=== PATIENT | male | born 1960 | race American Indian/Alaskan Native ===

== ENCOUNTER 2020-07-31 12:01 | Emergency (ER) | payer MEDICARE ==
--- NOTE | 2020-07-31 12:52 | Event Note ---
ED Screening Note Date of service: 07/31/20 Time: 12:51 ED Screening Note: Patient with a past medical history of liver transplant in 2012. Comes in with complaints of right-sided abdominal pain for the past 3 days. Associated abdominal distention and increased gas production. He denies any nausea, vomiting, bowel changes, UTI symptoms, chest pain or shortness of breath. He denies any fever or chills. He takes his transplant medication but takes no other medications This initial assessment/diagnostic orders/clinical plan/treatment(s) is/are subject to change based on patients health status, clinical progression and re- assessment by fellow clinical providers in the ED. Further treatment and workup at subsequent clinical providers discretion. Patient/guardian urged not to elope from the ED as their condition may be serious if not clinically assessed and managed. Initial orders include: Abdominal pain order set.
[2020-07-31 14:02] LABS: Alanine Aminotransferase 20 units/L (7-56); Albumin 3.8 g/dL (3.9-5); BUN/Creatinine Ratio 15; Blood Urea Nitrogen 28 mg/dL (9-20); Hemolysis Index 32
[2020-07-31 14:08] LABS: Basophils # (Auto) 0.1 K/mm3 (0.0-0.1); Eosinophils # (Auto) 0.6 K/mm3 (0.0-0.4); Eosinophils % (Auto) 5.1 % (0.0-4.3); Hematocrit 40.7 % (35.5-45.6); Hemoglobin 13.4 gm/dl (11.8-15.2); Lymphocytes % (Auto) 35.7 % (13.4-35.0); Mean Corpuscular HGB Conc 33 % (32-34); Mean Corpuscular Volume 94 fl (84-94); Monocytes # (Auto) 1.3 K/mm3 (0.0-0.8); Platelet Count 332 K/mm3 (140-440); Red Blood Count 4.33 M/mm3 (3.65-5.03); Red Cell Distribution Width 15.3 % (13.2-15.2)
[2020-07-31 14:10] LABS: Bilirubin,Direct < 0.2 mg/dL (0-0.2)
--- NOTE | 2020-07-31 17:04 | Emergency Department Report ---
HPI - General Chief Complaint: Abdominal Pain Time Seen by Provider: 07/31/20 16:43 - HPI HPI: Room 3 The patient is a 60-year-old male present with a chief complaint of right flank pain. The patient states for the past 3 days he has had pain in the right flank. Patient states it was initially intermittent but since yesterday the pain is been constant and sharp in nature. Patient denies nausea/vomiting, dysuria or hematuria. Patient denies history of fever. Patient gives his pain a score of 8/10. Of note the patient is status post a liver transplant in 2013 at [facility] transplant physician is Dr. Iniguez ([phone]) ED Past Medical Hx - Surgical History Past Surgical History?: Yes Additional Surgical History: liver transplant (2013 [facility] transplant physician Dr. Iniguez [phone]) - Family History Family history: no significant - Social History Smoking Status: Never Smoker Substance Use Type: None (Denies illicit drug use) - Medications Home Medications: Home Medications Medication Instructions Recorded Confirmed Last Taken Type HYDROcodone/APAP 5-325 [[place] 1 - 2 each PO Q6HR PRN #10 tablet 07/31/20 Unknown Rx 5/325] ED Review of Systems ROS: Stated complaint: PAIN RT LOWER SIDE/STOMACH Other details as noted in HPI Constitutional: denies: fever Eyes: denies: eye pain ENT: denies: throat pain Respiratory: no symptoms reported Cardiovascular: denies: chest pain Endocrine: no symptoms reported Gastrointestinal: abdominal pain. denies: nausea, vomiting Genitourinary: denies: dysuria, hematuria Musculoskeletal: denies: back pain Neurological: denies: headache Physical Exam - Physical Exam Vital Signs: Vital Signs 07/31/20 12:06 Temperature 98.6 F Pulse Rate 82 Respiratory 20 Rate Blood Pressure 149/83 O2 Sat by Pulse 95 Oximetry Physical Exam: GENERAL: The patient is well-developed well-nourished male standing in room appearing to be in mild discomfort. [] HEENT: Normocephalic. Atraumatic. Extraocular motions are intact. Patient has moist mucous membranes. NECK: Supple. Trachea midline CHEST/LUNGS: Clear to auscultation. There is no respiratory distress noted. HEART/CARDIOVASCULAR: Regular. There is no tachycardia. There is no gallop rub or murmur. ABDOMEN: Abdomen is soft, nontender in all 4 quadrants. Patient exhibits tenderness to palpation along the mid axillary line between the right upper and right lower quadrant. Patient has normal bowel sounds. There is no abdominal distention. SKIN: There is no rash. There is no edema. There is no diaphoresis. NEURO: The patient is awake, alert, and oriented. The patient is cooperative. The patient has no focal neurologic deficits. The patient has normal speech and gait. MUSCULOSKELETAL: There is right CVA tenderness. There is no evidence of acute injury. ED Course Vital Signs 07/31/20 12:06 Temperature 98.6 F Pulse Rate 82 Respiratory 20 Rate Blood Pressure 149/83 O2 Sat by Pulse 95 Oximetry - Consultations Consultation #1: 07/31/20 18:57 Dr. Hira corey 07/31/20 19:23 Case discussed with [facility] transplant physician Dr. Lopez-May have p atient follow-up as an outpatient. Okay with patient being prescribed narcotic pain medication. ED Medical Decision Making - Lab Data Result diagrams: 07/31/20 13:15 07/31/20 13:15 Laboratory Tests 07/31/20 07/31/20 07/31/20 13:15 13:15 18:13 WBC 11.1 H RBC 4.33 Hgb 13.4 Hct 40.7 MCV 94 MCH 31 MCHC 33 RDW 15.3 H Plt Count 332 Lymph % (Auto) 35.7 H Norman % (Auto) 12.0 H Eos % (Auto) 5.1 H Baso % (Auto) 1.0 Lymph # (Auto) 4.0 Norman # (Auto) 1.3 H Eos # (Auto) 0.6 H Baso # (Auto) 0.1 Seg Neutrophils % 46.2 Seg Neutrophils # 5.1 Sodium 135 L Potassium 4.4 Chloride 104.3 Carbon Dioxide 23 Anion Gap 12 BUN 28 H Creatinine 1.9 H Estimated GFR 44 BUN/Creatinine Ratio 15 Glucose 95 Calcium 9.0 Total Bilirubin 0.40 Direct Bilirubin < 0.2 Indirect Bilirubin 0.2 AST 24 ALT 20 Alkaline Phosphatase 147 H Total Protein 8.9 H Albumin 3.8 L Albumin/Globulin Ratio 0.7 Lipase 13 Urine Color Yellow Urine Turbidity Clear Urine pH 5.0 Ur Specific [place] 1.014 Urine Protein 30 mg/dl Urine Glucose (UA) Neg Urine Ketones Neg Urine Blood Neg Urine Nitrite Neg Urine Bilirubin Neg Urine Urobilinogen < 2.0 Ur Leukocyte Esterase Neg Urine WBC (Auto) < 1.0 Urine RBC (Auto) 1.0 U Epithel Cells (Auto) < 1.0 Urine Mucus Few - Radiology Data Radiology results: report reviewed (CT abdomen pelvis), image reviewed (CT abdomen pelvis) [facility] [address] [place] [address] Cat Scan Report Signed Patient: ABHIJIT CRAIG MR#: [id number] : 1960 Acct:[id number] Age/Sex: 60 / M ADM Date: 07/31/20 Loc: ED Attending Dr: Ordering Physician: MACO MACIAS MD Date of Service: 07/31/20 Procedure(s): CT abdomen pelvis wo con Accession Number(s): [id number] cc: MACO MACIAS MD CT ABDOMEN AND PELVIS WITHOUT CONTRAST HISTORY: Right flank pain. h/o liver xplant 2012. COMPARISON: None. TECHNIQUE: CT images of the abdomen and pelvis were obtained without administration of intravenous contrast. All CT scans at this location are performed using CT dose reduction for ALARA by means of automated exposure control. FINDINGS: Lungs/bones: There is increased interstitial prominence with bronchiectasis in the lower lungs. Abdomen/pelvis: Patient with history of liver transplant. No free fluid is seen in the upper abdomen. There is postsurgical change in the bowel loops. The small bowel loops small in caliber. There is a dilated small bowel loop distally the level of the anastomosis with dilatation to 4.3 cm. The stomach is slightly dilated and fluid and gas-filled. No dominant adenopathy is seen in the abdomen. No renal or ureteral stones are seen. No hydronephrosis. There is fecal material throughout the colon. Degenerative changes seen throughout spine with postoperative change. IVC filter is noted. IMPRESSION: 1. Abnormal appearance with dilated short segment of small bowel loop within the right mid abdomen. This loop of bowel measures up to 4.3 cm and is in the region of prior anastomosis small bowel. The proximal and distal portion of the small bowel extending from this dilated loop of bowel do not appear to be significantly dilated. This area of dilatation measures 12.5 cm in length. There is fecal material throughout the colon which is distended. The stomach is also distended with gas and fluid. Findings are n onspecific. Early obstruction cannot be completely excluded. A small bowel follow-through series and follow-up recommended. Correlation with clinical history. No free fluid is seen in the abdomen or pelvis. 2. No renal or ureteral stones are seen. No hydronephrosis. 3. Chronic interstitial change in the lung bases. Signer Name: Cain Vallejo MD Signed: 07/31/2020 5:50 PM Workstation Name: [id number] Transcribed By: CW Dictated By: GIANNI VALLEJO MD Electronically Authenticated By: GIANNI VALLEJO MD Signed Date/Time: 07/31/201749 DD/ 43 TD/TT: Print Cancel - Differential Diagnosis Renal colic, pyelonephritis, muscle strain, transplant rejection Critical care attestation.: If time is entered above; I have spent that time in minutes in the direct care of this critically ill patient, excluding procedure time. ED Disposition Clinical Impression: Acute right flank pain Disposition: TO HOME OR SELFCARE Is pt being admited?: No Does the pt Need Aspirin: No Condition: Stable Instructions: Flank Pain, Adult, [id number] Additional Instructions: Return to the emergency department should you develop worsening symptoms, inability to tolerate food or liquids, high fever or any other concerns Prescriptions: HYDROcodone/APAP 5-325 [[place] 5/325] 1 - 2 each PO Q6HR PRN #10 tablet PRN Reason: Pain Referrals: DIAN VAZQUEZ MD [Primary Care Provider] - 3-5 Days [facility] transplant [Other] - 2-3 Days Time of Disposition: 19:25
--- NOTE | 2020-07-31 17:54 | Cat Scan Report ---
CT ABDOMEN AND PELVIS WITHOUT CONTRAST HISTORY: Right flank pain. h/o liver xplant 2013. COMPARISON: None. TECHNIQUE: CT images of the abdomen and pelvis were obtained without administration of intravenous co ntrast. All CT scans at this location are performed using CT dose reduction for ALARA by means of au tomated exposure control. FINDINGS: Lungs/bones: There is increased interstitial prominence with bronchiectasis in the lower lungs. Abdomen/pelvis: Patient with history of liver transplant. No free fluid is seen in the upper abdomen . There is postsurgical change in the bowel loops. The small bowel loops small in caliber. There is a dilated small bowel loop distally the level of the anastomosis with dilatation to 4.3 cm. The stomac h is slightly dilated and fluid and gas-filled. No dominant adenopathy is seen in the abdomen. No renal or ureteral stones are seen. No hydronephrosis. There is fecal material throughout the colon . Degenerative changes seen throughout spine with postoperative change. IVC filter is noted. IMPRESSION: 1. Abnormal appearance with dilated short segment of small bowel loop within the right mid abdomen. T his loop of bowel measures up to 4.3 cm and is in the region of prior anastomosis small bowel. The pr oximal and distal portion of the small bowel extending from this dilated loop of bowel do not appear to be significantly dilated. This area of dilatation measures 12.5 cm in length. There is fecal mater ial throughout the colon which is distended. The stomach is also distended with gas and fluid. Findin gs are nonspecific. Early obstruction cannot be completely excluded. A small bowel follow-through ser ies and follow-up recommended. Correlation with clinical history. No free fluid is seen in the abdome n or pelvis. 2. No renal or ureteral stones are seen. No hydronephrosis. 3. Chronic interstitial change in the lung bases. Signer Name: Cain Loomis MD Signed: 07/31/2020 5:50 PM Workstation Name: [employer]
[2020-07-31 18:46] LABS: Bilirubin,Urine NEG (Negative); Blood,Urine NEG (Negative); Color,Urine Yellow (Yellow); Mucus,Urine FEW /HPF; Urobilinogen,Urine < 2.0 mg/dL (<2.0); WBC,Urine < 1.0 /HPF (0.0-6.0)
[2020-07-31] MEDS ORDERED: HYDROmorphone 1 MG/1 ML INJ IM ONE (19:26)
[2020-07-31] MEDS ORDERED: ONDANSETRON 4 MG/2 ML INJ IM ONE (19:26)
[2020-07-31 20:27] VITALS: BP 146/87
== END 2020-07-31 20:24 | disposition home or self-care (01) ==
LOC: ED 12:01
DX: R10.9 Unspecified abdominal pain (principal); Z79.899 Other long term (current) drug therapy; Z98.890 Other specified postprocedural states
CPT/HCPCS: 36415; 74176; 80048; 80076; 81001; 83690; 85025; 96372; 99284; J1170; J2405

== ENCOUNTER 2021-03-20 22:14 | Emergency (ER) | payer MEDICARE ==
[2021-03-20] MEDS ORDERED: traMADol 50 MG TAB PO ONE (22:48)
[2021-03-20 23:02] LABS: Bilirubin,Urine NEG (Negative); Blood,Urine NEG (Negative); Color,Urine Yellow (Yellow); RBC,Urine < 1.0 /HPF (0.0-6.0); Urobilinogen,Urine < 2.0 mg/dL (<2.0); WBC,Urine < 1.0 /HPF (0.0-6.0)
[2021-03-20 23:37] LABS: Basophils # (Auto) 0.1 K/mm3 (0.0-0.1); Basophils % (Auto) 0.6 % (0.0-1.8); Eosinophils # (Auto) 0.4 K/mm3 (0.0-0.4); Eosinophils % (Auto) 4.4 % (0.0-4.3); Hematocrit 42.2 % (35.5-45.6); Hemoglobin 13.7 gm/dl (11.8-15.2); Lymphocytes # (Auto) 3.2 K/mm3 (1.2-5.4); Lymphocytes % (Auto) 37.8 % (13.4-35.0); Mean Corpuscular HGB Conc 32 % (32-34); Mean Corpuscular Volume 93 fl (84-94); Monocytes # (Auto) 0.9 K/mm3 (0.0-0.8); Monocytes % (Auto) 10.6 % (0.0-7.3); Platelet Count 330 K/mm3 (140-440); Red Blood Count 4.55 M/mm3 (3.65-5.03); Red Cell Distribution Width 15.4 % (13.2-15.2)
[2021-03-20 23:53] LABS: Partial Thromboplastin Time 29.2 Sec. (24.2-36.6)
[2021-03-20 23:55] LABS: Albumin 3.8 g/dL (3.9-5); Calcium 9.1 mg/dL (8.4-10.2)
[2021-03-21 00:10] LABS: INR 1.05 (0.87-1.13)
[2021-03-21] MEDS ORDERED: HYDROcodone/ACETAMINOPHEN 7.5-325MG TAB PO ONE (00:19)
--- NOTE | 2021-03-21 01:00 | Cat Scan Report ---
CT ABDOMEN AND PELVIS WITHOUT CONTRAST INDICATION / CLINICAL INFORMATION: suprapubic pain and back pain. TECHNIQUE: Axial CT images were obtained through the abdomen and pelvis without IV contrast. All CT scans at this location are performed using CT dose reduction for ALARA by means of automated exposure control. COMPARISON: CT from 07/31/2020 FINDINGS: LOWER CHEST: Prominent interstitial opacities and bronchiectasis again noted within the lower lungs. This appears increased from prior study and may reflect superimposed infiltrate. LIVER: Reported history of prior liver transplant. The unenhanced liver appears unremarkable. GALLBLADDER/BILIARY TREE: Cholecystectomy. 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 ADRENALS: No significant abnormality KIDNEYS / URETER: No significant abnormality URINARY BLADDER: No significant abnormality REPRODUCTIVE ORGANS: No significant abnormality STOMACH / BOWEL: Postoperative changes of the small bowel with stable prominence of the small bowel i n the anastomosis. There is no evidence of acute bowel inflammation or obstruction. Moderate colonic stool burden. No evidence of colitis. The appendix is normal in caliber. LYMPH NODES: Stable prominent mesenteric and upper abdominal lymph nodes. No new or increasing adenop athy. VASCULATURE: Stable appearance of IVC filter. Abdominal aorta is normal in caliber. No acute abnormal ity. OTHER: No free air, free fluid, or focal fluid collection is identified. SKELETAL SYSTEM: Stable chronic and postoperative findings. No acute osseous findings. IMPRESSION: 1. No acute abnormality of the abdomen or pelvis. 2. Findings of chronic interstitial lung disease with diffuse increased interstitial opacities in the lung bases, may reflect superimposed acute infiltrate. 3. Stable postoperative appearance of the small bowel. Moderate colonic stool burden may reflect cons tipation. No evidence of bowel inflammation or obstruction. 4. Other stable chronic and incidental findings as above. 5. IVC filter. IVC Filter Recommendation: IVC filters should be removed if possible when they are no longer clinical ly necessary. (1) Refer to the established IVC filter management plan; (2) If there is no established plan for the patient's IVC filter, consider referral to interventional/vascular clinician on a nonem ergent basis for evaluation. Signer Name: Kentrell Cruz MD Signed: 03/21/2021 12:55 AM Workstation Name: [email or web address]
--- NOTE | 2021-03-21 01:16 | Emergency Department Report ---
ED Abdominal Pain HPI - General Chief Complaint: Abdominal Pain Stated Complaint: BACK AND ABD PAIN Time Seen by Provider: 03/20/21 22:47 Source: patient Mode of arrival: Ambulatory Limitations: Physical Limitation - History of Present Illness Initial Comments: Patient is a 61-year-old F [place] male who is presenting with back pain in the central back for approximately a week and suprapubic pain for approximately 2 days. Patient states the back pain is chronic and is off and on. States is worse with movement better with rest and is estimated 6 out of 10 in severity. States is aching pain. Patient states the suprapubic pain is more severe at 8 out of 10 in severity. He denies dysuria hematuria urinary frequency pain with bowel movements diarrhea or constipation. Patient states he sometimes has up to 3 bowel movements a day which appeared normal. Is had no fevers chills cough cold or congestion. Severity scale (0 -10): 8 - Related Data Previous Rx's Medication Instructions Recorded Last Taken Type HYDROcodone/APAP 5-325 [[place] 1 - 2 each PO Q6HR PRN #10 tablet 07/31/20 Unknown Rx 5/325] Dicyclomine [Bentyl] 20 mg PO QID #10 tablet 03/21/21 Unknown Rx Docusate Sodium [Colace] 100 mg PO BID #30 capsule 03/21/21 Unknown Rx HYDROcodone/APAP 5-325 [[place] 1 each PO Q6HR PRN #14 tablet 03/21/21 Unknown Rx 5/325] Ketorolac [Toradol] 10 mg PO Q6H PRN #20 tablet 03/21/21 Unknown Rx Ondansetron [Zofran Odt] 4 mg PO Q8HR #10 tab.rapdis 03/21/21 Unknown Rx methOCARBAMOL [Robaxin TAB] 500 mg PO Q6H PRN #14 tablet 03/21/21 Unknown Rx Allergies Allergy/AdvReac Type Severity Reaction Status Date / Time No Known Allergies Allergy Verified 03/20/21 22:54 ED Review of Systems ROS: Stated complaint: BACK AND ABD PAIN Other details as noted in HPI Comment: All other systems reviewed and negative ED Past Medical Hx - Past Medical History Previous Medical History?: Yes 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 Iniguez [phone]) - Social History Smoking Status: Never Smoker Substance Use Type: None - Medications Home Medications: Home Medications Medication Instructions Recorded Confirmed Last Taken Type HYDROcodone/APAP 5-325 [[place] 1 - 2 each PO Q6HR PRN #10 tablet 07/31/20 Unknown Rx 5/325] Dicyclomine [Bentyl] 20 mg PO QID #10 tablet 03/21/21 Unknown Rx Docusate Sodium [Colace] 100 mg PO BID #30 capsule 03/21/21 Unknown Rx HYDROcodone/APAP 5-325 [[place] 1 each PO Q6HR PRN #14 tablet 03/21/21 Unknown Rx 5/325] Ketorolac [Toradol] 10 mg PO Q6H PRN #20 tablet 03/21/21 Unknown Rx Ondansetron [Zofran Odt] 4 mg PO Q8HR #10 tab.rapdis 03/21/21 Unknown Rx methOCARBAMOL [Robaxin TAB] 500 mg PO Q6H PRN #14 tablet 03/21/21 Unknown Rx ED Physical Exam - General Limitations: Physical Limitation General appearance: alert, in no apparent distress - Head Head exam: Present: atraumatic, normocephalic - Eye Eye exam: Present: normal appearance - ENT ENT exam: Present: mucous membranes moist - Neck Neck exam: Present: normal inspection - Respiratory Respiratory exam: Present: normal lung sounds bilaterally. Absent: respiratory distress, wheezes, rales, rhonchi - Cardiovascular Cardiovascular Exam: Present: regular rate, normal rhythm. Absent: systolic murmur, diastolic murmur, rubs, gallop - GI/Abdominal GI/Abdominal exam: Present: soft, tenderness (Suprapubic tenderness), normal bowel sounds. Absent: distended, guarding, rebound, rigid - Rectal Rectal exam: Present: deferred - Extremities Exam Extremities exam: Present: normal inspection - Back Exam Back exam: Present: normal inspection - Neurological Exam Neurological exam: Present: alert, oriented X3 - Psychiatric Psychiatric exam: Present: normal affect, normal mood - Skin Skin exam: Present: warm, dry, intact, normal color. Absent: rash ED Course Vital Signs 03/20/21 03/21/21 03/21/21 22:36 00:45 01:00 Temperature 98.3 F 98.1 F Pulse Rate 58 L 54 L 54 L Respiratory 18 17 24 Rate Blood Pressure 156/71 Blood Pressure 146/97 [Right] O2 Sat by Pulse 97 97 97 Oximetry ED Medical Decision Making - Lab Data Result diagrams: 03/20/21 23:03 03/20/21 23:03 Lab Results 03/20/21 03/20/21 03/20/21 Range/Units 22:51 23:03 23:03 WBC 8.3 (4.5-11.0) K/mm3 RBC 4.55 (3.65-5.03) M/mm3 Hgb 13.7 (11.8-15.2) gm/dl Hct 42.2 (35.5-45.6) % MCV 93 (84-94) fl MCH 30 (28-32) pg MCHC 32 (32-34) % RDW 15.4 H (13.2-15.2) % Plt Count 330 (140-440) K/mm3 Lymph % (Auto) 37.8 H (13.4-35.0) % [place] % (Auto) 10.6 H (0.0-7.3) % Eos % (Auto) 4.4 H (0.0-4.3) % Baso % (Auto) 0.6 (0.0-1.8) % Lymph # (Auto) 3.2 (1.2-5.4) K/mm3 [place] # (Auto) 0.9 H (0.0-0.8) K/mm3 Eos # (Auto) 0.4 (0.0-0.4) K/mm3 Baso # (Auto) 0.1 (0.0-0.1) K/mm3 Seg Neutrophils % 46.6 (40.0-70.0) % Seg Neutrophils # 3.9 (1.8-7.7) K/mm3 PT 14.8 (12.2-14.9) Sec. INR 1.05 (0.87-1.13) APTT 29.2 (24.2-36.6) Sec. Sodium (137-145) mmol/L Potassium (3.6-5.0) mmol/L Chloride (98-107) mmol/L Carbon Dioxide (22-30) mmol/L Anion Gap mmol/L BUN (9-20) mg/dL Creatinine (0.8-1.3) mg/dL Estimated GFR ml/min BUN/Creatinine Ratio % Glucose (75-100) mg/dL Calcium (8.4-10.2) mg/dL Total Bilirubin (0.1-1.2) mg/dL AST (5-40) units/L ALT (7-56) units/L Alkaline Phosphatase (35-129) units/L Total Protein (6.3-8.2) g/dL Albumin (3.9-5) g/dL Albumin/Globulin Ratio % Urine Color Yellow (Yellow) Urine Turbidity Clear (Clear) Urine pH 5.0 (5.0-7.0) Ur Specific [place] 1.015 (1.003-1.030) Urine Protein 30 mg/dl (Negative) mg/dL Urine Glucose (UA) Neg (Negative) mg/dL Urine Ketones Neg (Negative) mg/dL Urine Blood Neg (Negative) Urine Nitrite Neg (Negative) Urine Bilirubin Neg (Negative) Urine Urobilinogen < 2.0 (<2.0) mg/dL Ur Leukocyte Esterase Neg (Negative) Urine WBC (Auto) < 1.0 (0.0-6.0) /HPF Urine RBC (Auto) < 1.0 (0.0-6.0) /HPF 03/20/21 Range/Units 23:03 WBC (4.5-11.0) K/mm3 RBC (3.65-5.03) M/mm3 Hgb (11.8-15.2) gm/dl Hct (35.5-45.6) % MCV (84-94) fl MCH (28-32) pg MCHC (32-34) % RDW (13.2-15.2) % Plt Count (140-440) K/mm3 Lymph % (Auto) (13.4-35.0) % [place] % (Auto) (0.0-7.3) % Eos % (Auto) (0.0-4.3) % Baso % (Auto) (0.0-1.8) % Lymph # (Auto) (1.2-5.4) K/mm3 [place] # (Auto) (0.0-0.8) K/mm3 Eos # (Auto) (0.0-0.4) K/mm3 Baso # (Auto) (0.0-0.1) K/mm3 Seg Neutrophils % (40.0-70.0) % Seg Neutrophils # (1.8-7.7) K/mm3 PT (12.2-14.9) Sec. INR (0.87-1.13) APTT (24.2-36.6) Sec. Sodium 141 (137-145) mmol/L Potassium 4.8 (3.6-5.0) mmol/L Chloride 111.3 H (98-107) mmol/L Carbon Dioxide 21 L (22-30) mmol/L Anion Gap 14 mmol/L BUN 22 H (9-20) mg/dL Creatinine 1.6 H (0.8-1.3) mg/dL Estimated GFR 53 ml/min BUN/Creatinine Ratio 14 % Glucose 112 H (75-100) mg/dL Calcium 9.1 (8.4-10.2) mg/dL Total Bilirubin 0.20 (0.1-1.2) mg/dL AST 25 (5-40) units/L ALT 22 (7-56) units/L Alkaline Phosphatase 120 (35-129) units/L Total Protein 8.5 H (6.3-8.2) g/dL Albumin 3.8 L (3.9-5) g/dL Albumin/Globulin Ratio 0.8 % Urine Color (Yellow) Urine Turbidity (Clear) Urine pH (5.0-7.0) Ur Specific [place] (1.003-1.030) Urine Protein (Negative) mg/dL Urine Glucose (UA) (Negative) mg/dL Urine Ketones (Negative) mg/dL Urine Blood (Negative) Urine Nitrite (Negative) Urine Bilirubin (Negative) Urine Urobilinogen (<2.0) mg/dL Ur Leukocyte Esterase (Negative) Urine WBC (Auto) (0.0-6.0) /HPF Urine RBC (Auto) (0.0-6.0) /HPF - Radiology Data CT ABDOMEN AND PELVIS WITHOUT CONTRAST INDICATION / CLINICAL INFORMATION: suprapubic pain and back pain. TECHNIQUE: Axial CT images were obtained through the abdomen and pelvis without IV contrast. All CT scans at this location are performed using CT dose reduction for MICHELLE duff of automated exposure control. COMPARISON: CT from 07/31/2020 FINDINGS: LOWER CHEST: Prominent interstitial opacities and bronchiectasis again noted within the lower lungs. This appears increased from prior study and may reflect superimposed infiltrate. LIVER: Reported history of prior liver transplant. The unenhanced liver appears unremarkable. GALLBLADDER/BILIARY TREE: Cholecystectomy. 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 ADRENALS: No significant abnormality KIDNEYS / URETER: No significant abnormality URINARY BLADDER: No significant abnormality REPRODUCTIVE ORGANS: No significant abnormality STOMACH / BOWEL: Postoperative changes of the small bowel with stable prominen ce of the small bowel in the anastomosis. There is no evidence of acute bowel inflammation or obstru ction. Moderate colonic stool burden. No evidence of colitis. The appendix is normal in caliber. LYMPH NODES: Stable prominent mesenteric and upper abdominal lymph nodes. No new or increasing adenopathy. VASCULATURE: Stable appearance of IVC filter. Abdominal aorta is normal in caliber. No acute abnormality. OTHER: No free air, free fluid, or focal fluid collection is identified. SKELETAL SYSTEM: Stable chronic and postoperative findings. No acute osseous findings. IMPRESSION: 1. No acute abnormality of the abdomen or pelvis. 2. Findings of chronic interstitial lung disease with diffuse increased interstitial opacities in the lung bases, may reflect superimposed acute infiltrate. 3. Stable postoperative appearance of the small bowel. Moderate colonic stool burden may reflect constipation. No evidence of bowel inflammation or obstruction. 4. Other stable chronic and incidental findings as above. 5. IVC filter. IVC Filter Recommendation: IVC filters should be removed if possible when they are no longer clinically necessary. (1) Refer to the established IVC filter management plan; (2) If there is no established plan for the patient's IVC filter, consider referral to interventional/vascular clinician on a nonemergent basis for evaluation. Signer Name: Kentrell Cruz MD Signed: 03/21/2021 12:55 AM Workstation Name: [id number] - Medical Decision Making No obvious cause of the patient's pain was found. He does have moderate amount of constipation and states he normally takes stool softeners but has not this week. Will restart the patient on stool softeners. Patient will be given a prescription for Bentyl. Patient given medication for symptomatic relief for his pain and will be discharged home with follow-up with GI. Critical care attestation.: If time is entered above; I have spent that time in minutes in the direct care of this critically ill patient, excluding procedure time. ED Disposition Clinical Impression: Chronic back pain Abdominal pain Qualifiers: Abdominal location: lower abdomen, unspecified Qualified Code(s): R10.30 - Lower abdominal pain, unspecified Constipation Qualifiers: Constipation type: slow transit constipation Qualified Code(s): K59.01 - Slow transit constipation Disposition: HOME / SELF CARE / HOMELESS Is pt being admited?: No Does the pt Need Aspirin: No Condition: Stable Instructions: Constipation, Adult, Acute Back Pain, Adult, Abdominal Pain, Adult Referrals: [facility] [Provider Group] - 3-5 Days Time of Disposition: 01:16
[2021-03-21] MEDS ORDERED: KETOROLAC 30 MG/1 ML INJ IV ONE (01:42)
[2021-03-21 02:12] VITALS: BP 153/81
== END 2021-03-21 03:40 | disposition home or self-care (01) ==
LOC: ED 22:14
DX: M54.9 Dorsalgia, unspecified (principal); R10.9 Unspecified abdominal pain; K59.00 Constipation, unspecified; Z94.4 Liver transplant status
CPT/HCPCS: 36415; 74176; 80053; 81001; 85025; 85610; 85730; 96374; 99284; J1885